=== PATIENT | male | born 1940 | race African-American/Black ===

== ENCOUNTER 2022-02-03 10:16 | Emergency (ER) | payer OTHER ==
[2022-02-03] MEDS ORDERED: Bacitracin 1 PK ONE (10:45)
[2022-02-03] MEDS ORDERED: Boostrix 0.5 ML (Tdap) VIAL (>/=7 yrs of age) ONE (10:46)
[2022-02-03] MEDS ORDERED: Lidocaine 1% (PF) 30 ML VIAL ONE (10:46)
== END 2022-02-03 11:46 ==
LOC: NAV ERS 10:16
DX: S01.81XA Laceration without foreign body of other part of head, initial encounter (principal); Z23 Encounter for immunization; W06.XXXA Fall from bed, initial encounter
CPT/HCPCS: 12014; 70450; 72125; 90471; 90715; J2001